=== PATIENT | male | born 1970 | race Caucasian/White ===

== ENCOUNTER 2016-07-06 19:19 | Emergency (ER) | payer OTHER ==
[~2016-07-06] VITALS: Ht 177.8 cm; Wt 100.0 kg
[2016-07-06 19:28] VITALS: BP 133/79
[2016-07-06] MEDS ORDERED: PROMETHAZINE 12.5 MG in IV NORMAL SALINE 50ML 50 ML IV PRN (19:30)
[2016-07-06] MEDS ORDERED: IV NORMAL SALINE 1,000ML 1,000 ML IV ONE (19:30)
[2016-07-06] MEDS ORDERED: DIPHENOXYLATE/ATROPINE TABLET. PO ONE (19:30)
--- NOTE | 2016-07-06 19:38 | EKG ---
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
[2016-07-06] MEDS ORDERED: IV NORMAL SALINE 50ML 50 ML ONE (19:52)
[2016-07-06] MEDS ORDERED: PROMETHAZINE 25 MG/ML VIAL IV ONE (19:52)
--- NOTE | 2016-07-06 20:02 | PHYS DOC ---
Past History Past Medical History: Arrhythmia Past Surgical History: Other Additional Past Surgical Histo: bilateral knees, bilateral shoulders Alcohol Use: None Drug Use: None Adult General Chief Complaint Chief Complaint: NAUSEA/VOMITING/DIARRHEA HPI HPI Patient is a pleasant 45-year-old otherwise healthy male who is visiting his daughter in [facility] earlier today after eating breakfast with her and traveling home. Developed a diarrheal illness that progressed to nausea and vomiting. About every 30-45 minutes he was required to sinker puller to the side of the road in order to vomit or use the restroom. Patient felt very lightheaded and dizzy after being volume depleted attempted to maintain his hydration by orally challenging himself with fluids and water on the way home. His significant other brought him here for evaluation secondary they're feared he was dehydrated. He denies any abdominal pain and rectal pain blood in his vomit or stool. Patient denies any chest pain shortness of breath or other focal neurologic deficits with this dizziness. He describes some diaphoresis with the symptoms of nausea vomiting diarrhea but now resolved. Patient denies any fever , consumption of raw food, sick contacts recent antimicrobials or travel outside the country. Review of Systems Review of Systems Constitutional: Denies fever patient has had some chills and diaphoresis. Eyes: Denies change in visual acuity, redness, or eye pain [] HENT: Denies nasal congestion or sore throat [] Respiratory: Denies cough or shortness of breath [] Cardiovascular: No additional information not addressed in HPI [] GI: Patient denies abdominal pain but complains of nausea vomiting nonbilious nonbloody loose mucoid stool : Denies dysuria or hematuria [] Musculoskeletal: Denies back pain or joint pain [] Integument: Denies rash or skin lesions [] Neurologic: Denies headache, focal weakness or sensory changes [] Endocrine: Denies polyuria or polydipsia [] Current Medications Current Medications Current Medications Medications (Trade) Dose Ordered Sig/Vika Start Time Stop Time Status Last Admin Dose Admin Diphenoxylate HCl/ Atropine (Lomotil) 2 tab 1X ONCE 07/06/16 19:30 07/06/16 19:32 DC Promethazine HCl (Phenergan) 25 mg STK-MED ONCE 07/06/16 19:52 07/06/16 19:53 DC Promethazine HCl 12.5 mg/Sodium Chloride 50.5 ml @ 101 mls/hr PRN Q6HRS PRN 07/06/16 19:30 Sodium Chloride 50 ml @ As Directed STK-MED ONCE 07/06/16 19:52 07/06/16 19:53 DC Allergies Allergies Allergies Coded Allergies Type Severity Reaction Last Updated Verified No Known Drug Allergies 09/10/14 No Physical Exam Physical Exam Constitutional: Well developed, well nourished patient obviously uncomfortable nontoxic nondiaphoretic not pale. [] HENT: Normocephalic, atraumatic, bilateral external ears normal, dry mucous membranes, no oral exudates, nose normal. [] Eyes: PERRLA, EOMI, conjunctiva normal, no discharge. [] Neck: Normal range of motion, no tenderness, supple, no stridor. [] Cardiovascular:Heart rate regular rhythm, no murmur [] Lungs & Thorax: Bilateral breath sounds clear to auscultation [] Abdomen: Bowel sounds normal, soft, no tenderness, increased bowel sounds, no guarding rebound or organomegaly no Maldonado's or McBurney's point tenderness to palpation. Skin: Warm, dry, no erythema, no rash. [] Back: No tenderness, no CVA tenderness. [] Extremities: No tenderness, no cyanosis, no clubbing, ROM intact, no edema. [] Neurologic: Alert and oriented X 3, normal motor function, normal sensory function, no focal deficits noted. [] Psychologic: Affect normal, judgement normal, mood normal. [] Current Patient Data Vital Signs Vital Signs Date Time Temp Pulse Resp B/P (MAP) Pulse Ox O2 Delivery O2 Flow Rate FiO2 07/06/16 19:28 102 20 97 Room Air Lab Results Nursery Laboratory Tests 07/06/16 19:50: White Blood Count 10.0, Red Blood Count 5.62, Hemoglobin 17.4, Hematocrit 50.2, Mean Corpuscular Volume 89, Mean Corpuscular Hemoglobin 31, Mean Corpuscular Hemoglobin Concent 35, Red Cell Distribution Width 12.4, Platelet Count 208, Neutrophils (%) (Auto) 93, Lymphocytes (%) (Auto) 3, Monocytes (%) (Auto) 3, Eosinophils (%) (Auto) 0, Basophils (%) (Auto) 0, Neutrophils # (Auto) 9.3, Lymphocytes # (Auto) 0.3, Monocytes # (Auto) 0.3, Eosinophils # (Auto) 0.0, Basophils # (Auto) 0.0, Sodium Level 140, Potassium Level 3.5, Chloride Level 102, Carbon Dioxide Level 30, Anion Gap 8, Blood Urea Nitrogen 19, Creatinine 1.0, Estimated GFR (Cockcroft-Gault) 80.4, BUN/Creatinine Ratio 19, Glucose Level 115, Calcium Level 8.5, Total Bilirubin 1.0, Aspartate Amino Transf (AST/ SGOT) 14, Alanine Aminotransferase (ALT/SGPT) 31, Alkaline Phosphatase 66, Total Protein 7.1, Albumin 4.0, Albumin/Globulin Ratio 1.3 Laboratory Tests Test 07/06/16 19:50 White Blood Count 10.0 x10^3/uL (4.0-11.0) Red Blood Count 5.62 x10^6/uL (4.30-5.70) Hemoglobin 17.4 g/dL (13.0-17.5) Hematocrit 50.2 % (39.0-53.0) Mean Corpuscular Volume 89 fL (79-100) Mean Corpuscular Hemoglobin 31 pg (25-35) Mean Corpuscular Hemoglobin Concent 35 g/dL (31-37) Red Cell Distribution Width 12.4 % (11.5-14.5) Platelet Count 208 x10^3/uL (140-400) Neutrophils (%) (Auto) 93 % (31-73) H Lymphocytes (%) (Auto) 3 % (24-48) L Monocytes (%) (Auto) 3 % (0-9) Eosinophils (%) (Auto) 0 % (0-3) Basophils (%) (Auto) 0 % (0-3) Neutrophils # (Auto) 9.3 x10^3uL (1.8-7.7) H Lymphocytes # (Auto) 0.3 x10^3/uL (1.0-4.8) L Monocytes # (Auto) 0.3 x10^3/uL (0.0-1.1) Eosinophils # (Auto) 0.0 x10^3/uL (0.0-0.7) Basophils # (Auto) 0.0 x10^3/uL (0.0-0.2) Sodium Level 140 mmol/L (136-145) Potassium Level 3.5 mmol/L (3.5-5.1) Chloride Level 102 mmol/L (98-107) Carbon Dioxide Level 30 mmol/L (21-32) Anion Gap 8 (6-14) Blood Urea Nitrogen 19 mg/dL (8-26) Creatinine 1.0 mg/dL (0.7-1.3) Estimated GFR (Cockcroft-Gault) 80.4 BUN/Creatinine Ratio 19 (6-20) Glucose Level 115 mg/dL (70-99) H Calcium Level 8.5 mg/dL (8.5-10.1) Total Bilirubin 1.0 mg/dL (0.2-1.0) Aspartate Amino Transferase (AST) 14 U/L (15-37) L Alanine Aminotransferase (ALT) 31 U/L (16-63) Alkaline Phosphatase 66 U/L (46-116) Total Protein 7.1 g/dL (6.4-8.2) Albumin 4.0 g/dL (3.4-5.0) Albumin/Globulin Ratio 1.3 (1.0-1.7) EKG EKG EKG time 7:36 PM 8 07/06/[address] Ruiz demonstrated heart rate of 96. On arrival 156 which is normal QRS which is 104 which is within normal limits demonstrates left axis deviation but no ST segment changes or T-wave inversions consistent with ischemia. [] Radiology/Procedures Radiology/Procedures [] Course & Med Decision Making Course & Med Decision Making Pertinent Labs and Imaging studies reviewed. (See chart for details) patient's nursing notes and vital signs reviewed upon arrival and during his evaluation and hospitalization in the ER. When I checked him at approximately 2030 patient was feeling better nausea had improved with IV Phenergan and about 500 mL of fluid is still pending at that time. Patient was reassessed again at 9:15 PM feels markedly better, he was able to void about 250 mL of dark urine. Did review his laboratory work which inserted normal BUN/creatinine normal electrolytes and normal CBC. Patient's abdomen was soft NABS returned patient was feeling improved to where he was actually able to drink on his own without issue. His girlfriend at the bedside and I discussed precautions reasons to return and eventual disposition. Impression nausea vomiting diarrhea Differential diagnosis: Infectious diarrhea, syncope or diarrhea, food poisoning , GI absorption disorder, appendicitis, small bowel resection, disorder like IBS Crohn's, virus Disposition: Discharge the 24-48 hour follow-up with primary care doctor, Micky Sotelo, fluid hydration dehydration precautions and 48 hours off work. [] Dragon Disclaimer Dragon Disclaimer This chart was dictated in whole or in part using Voice Recognition software in a busy, high-work load, and often noisy Emergency Department environment. It may contain unintended and wholly unrecognized errors or omissions. Departure Departure: Impression: Primary Impression: Nausea and vomiting Additional Impressions: Diarrhea Dehydration Disposition: HOME, SELF-CARE Condition: IMPROVED Referrals: MAURA PÉREZ DO (PCP) Patient Instructions: Dehydration, Adult, Diarrhea, Nausea and Vomiting Additional Instructions: Please return for any new or increasing symptoms, or if you have any worsening nausea and vomiting with blood in your vomit or stool, or if fever greater than 102.2 despite treatment. He is follow-up with your primary care doctor in 24-48 hours if he still have symptoms return here immediately if your pain localizing to the right lower quadrant. I doubt that this is appendicitis at this time but did state disease secondary to progress at any time. She worsening symptoms please return immediately. Also encourage her to come back for any questions or concerns might have. Scripts Diphenoxylate Hcl/Atropine (LOMOTIL TABLET) 1 Each Tablet 1 TAB PO TID, #30 TAB Prov: PILLO RUIZ MD 07/06/16 Ondansetron (ZOFRAN ODT) 8 Mg Tab.rapdis 8 MG PO TID, #10 Prov: PILLO RUIZ MD 07/06/16 Dicyclomine Hcl (BENTYL) 10 Mg Capsule 1 CAP PO TID, #10 CAP 1 Refill Prov: PILLO RUIZ MD 07/06/16 Problem Qualifiers PILLO RUIZ MD July 06, 2016 20:02
[2016-07-06 20:09] LABS: BASO % 0 % (0-3); EOS % 0 % (0-3); HEMATOCRIT 50.2 % (39.0-53.0); HEMOGLOBIN 17.4 g/dL (13.0-17.5); LYMPH # 0.3 x10^3/uL (1.0-4.8); LYMPH % 3 % (24-48); MEAN CORPUSCULAR HEMOGLOBIN 31 pg (25-35); MEAN CORPUSCULAR HGB CONC 35 g/dL (31-37); MEAN CORPUSCULAR VOLUME 89 fL (79-100); MONO # 0.3 x10^3/uL (0.0-1.1); MONO % 3 % (0-9); NEUT # 9.3 x10^3uL (1.8-7.7); NEUT % 93 % (31-73); PLATELET COUNT 208 x10^3/uL (140-400); RED BLOOD COUNT 5.62 x10^6/uL (4.30-5.70); RED CELL DISTRIBUTION WIDTH 12.4 % (11.5-14.5)
[2016-07-06 20:18] LABS: ALBUMIN/GLOBULIN RATIO 1.3 (1.0-1.7); CALCIUM 8.5 mg/dL (8.5-10.1); GFR 80.4; POTASSIUM 3.5 mmol/L (3.5-5.1); TOTAL PROTEIN 7.1 g/dL (6.4-8.2)
[2016-07-06] MEDS ORDERED: ONDA8TAB12 PO (21:22)
[2016-07-06] MEDS ORDERED: DICY10CA53 PO (21:22)
[2016-07-06] MEDS ORDERED: DIPH1TAB PO (21:22)
[2016-07-06 22:08] LABS: BILIRUBIN,URINE NEG (NEG); CLARITY,URINE CLEAR; COLOR,URINE YELLOW; GLUCOSE,URINE NEG (NEG); NITRITE,URINE NEG (NEG); UROBILINOGEN,URINE 0.2 mg/dL (0.2 mg/dL)
[2016-07-06 22:09] LABS: BACTERIA,URINE 0 /HPF (0-FEW); RBC,URINE 0 /HPF (0-2); SQUAMOUS EPITHELIAL CELL,UR FEW /LPF
== END 2016-07-06 21:36 | disposition home or self-care (01) ==
LOC: ER 19:27
DX: R19.7 Diarrhea, unspecified (principal); R11.2 Nausea with vomiting, unspecified; E86.0 Dehydration
CPT/HCPCS: 36415; 80053; 81001; 85027; 93005; 96365; 99285; J2550; J7030